=== PATIENT | female | born 1940 | race Caucasian/White ===

== ENCOUNTER 2018-06-13 16:55 | Inpatient (IN) | payer MEDICARE, MEDICAID ==
[~2018-06-13] VITALS: Ht 154.9 cm; Wt 136.8 kg
[2018-06-13] VITALS (127 sets, daily range): BP systolic 93–109; BP diastolic 29–55; PULSE 84–85; TEMP 97.4–97.6; O2SAT 96–100
[~2018-06-13 16:55] MED LIST: ASPIRIN 81M81 MG/TA2 PO; ATIVAN 0.50.5 MG/TAB PO; HCTZ 25MG TAB25 MG PO; MOBIC15 MG PO; PRINIVIL20 MG PO; SYNTHROID0.075 MG/T PO; TYLENOL 325MG325 MG PO
[2018-06-13 19:09] LABS: BASO % 0.3 % (0.0-2.0); EOS # 0.4 (0.0-0.7); EOS % 3.6 % (0-4.0); GRAN # 9.1 (1.4-6.5); GRAN % 84.3 % (42.2-75.2); LYMPH # 0.7 (1.2-3.4); LYMPH % 6.8 % (20.0-51.0); MEAN CELL VOLUME 91 fl (80.0-100.0); MEAN CORPUSCULAR HGB CONC 29 g/dl (33.0-37.0); MEAN PLATELET VOLUME 10.8 fl (7.4-10.4); MONO # 0.5 (0.1-0.6); MONO % 4.3 % (1.7-9.3); PLATELET COUNT 235 K/mm3 (130-400); RED BLOOD COUNT 2.71 M/mm3 (4.10-5.30); REDCELL DISTRIBUTION WIDTH-CV 19.7 % (11.5-14.5)
[2018-06-13 19:15] LABS: HEMATOCRIT 24.7 % (37.0-47.0); HEMOGLOBIN 7.2 g/dl (12.5-16.0); MEAN CORPUSCULAR HEMOGLOBIN 27 pg (27.0-31.0)
[2018-06-13 19:25] LABS: ALBUMIN 3.2 gm/dL (3.5-5.0); BILIRUBIN,TOTAL 0.4 mg/dL (0.0-1.0); CALCIUM 8.2 mg/dL (8.4-10.2); POTASSIUM 5.5 mmol/L (3.4-5.0); TOTAL PROTEIN 6.7 gm/dL (6.4-8.2)
[2018-06-13 19:27] LABS: CREATININE, serum 8.22 mg/dL (0.52-1.25)
[2018-06-13 20:01] LABS: COLLECTION METHOD CATHETER
[2018-06-13 20:11] LABS: PH 5 (5-8); URINE APPEARANCE Cloudy; URINE BACTERIA Rare /hpf; URINE BILIRUBIN Negative (NEGATIVE); URINE BLOOD 2+ (NEGATIVE); URINE COLOR Yellow; URINE GLUCOSE Negative (NEGATIVE); URINE KETONE Trace (NEGATIVE); URINE LEUKOCYTE ESTERASE 3+ (NEGATIVE); URINE NITRATE Negative (NEGATIVE); URINE PROTEIN(semi-quant) Negative (NEGATIVE); URINE RBC 20-50 /hpf; URINE UROBILINOGEN Negative (NEGATIVE)
[2018-06-13 20:17] LABS: URINE PROTEIN:CREAT RATIO 0.09 (0.00-0.14)
[2018-06-13 20:17] LABS: FRACTIONAL EXCRETION OF NA+ 0.1 %
[2018-06-13 20:19] LABS: CREATININE, serum 8.34 mg/dL (0.52-1.25)
[2018-06-14] VITALS (427 sets, daily range): BP systolic 93–134; BP diastolic 43–87; PULSE 64–98; TEMP 97.4–98.6; O2SAT 71–100
[2018-06-14 05:54] LABS: BASO % 0.3 % (0.0-2.0); EOS # 0.4 (0.0-0.7); EOS % 4.2 % (0-4.0); GRAN # 7.8 (1.4-6.5); GRAN % 81.7 % (42.2-75.2); LYMPH # 0.8 (1.2-3.4); LYMPH % 8.5 % (20.0-51.0); MEAN CELL VOLUME 90 fl (80.0-100.0); MEAN CORPUSCULAR HGB CONC 29 g/dl (33.0-37.0); MEAN PLATELET VOLUME 10.6 fl (7.4-10.4); MONO # 0.5 (0.1-0.6); MONO % 4.9 % (1.7-9.3); PLATELET COUNT 204 K/mm3 (130-400); REDCELL DISTRIBUTION WIDTH-CV 19.6 % (11.5-14.5)
[2018-06-14 06:10] LABS: HEMATOCRIT 24.3 % (37.0-47.0); HEMOGLOBIN 7.1 g/dl (12.5-16.0); MEAN CORPUSCULAR HEMOGLOBIN 26 pg (27.0-31.0)
[2018-06-14 07:40] LABS: ALBUMIN 3.1 gm/dL (3.5-5.0); POTASSIUM 5.5 mmol/L (3.4-5.0)
[2018-06-14 07:41] LABS: PHOSPHOROUS 9.8 mg/dL (2.5-4.5)
[2018-06-14 07:45] LABS: CREATININE, serum 8.43 mg/dL (0.52-1.25)
[2018-06-14] MEDS ORDERED: LASIX 40MG TABL40 MG PO (16:23)
[2018-06-14] MEDS ORDERED: FERROUS SU325 MG/TAB PO (16:23)
[2018-06-14] MEDS ORDERED: PULMICORT0.5 MG/2 M IH (16:23)
[2018-06-14] MEDS ORDERED: ELIQUIS 5MG PO (16:23)
[2018-06-14] MEDS ORDERED: ATROVENT I0.2 MG/1 M IH (16:24)
[2018-06-14] MEDS ORDERED: INVANZ INJ1 G/VIAL IV (16:24)
[2018-06-14] MEDS ORDERED: TYLENOL 325MG325 MG PO (16:25)
[2018-06-14] MEDS ORDERED: LEVOXYL0.125 MG PO (16:25)
[2018-06-14] MEDS ORDERED: REQUIP 0.5MG0.5 MG PO (16:26)
[2018-06-14] MEDS ORDERED: LOPRESSOR 550 MG/TAB PO (16:26)
[2018-06-14] MEDS ORDERED: PROTONIX 40MG T40 MG PO (16:26)
[2018-06-14] MEDS ORDERED: LASIX 20MG TABL20 MG PO (16:27)
[2018-06-14] MEDS ORDERED: VITAMIN C500 MG PO (16:27)
[2018-06-15] VITALS (7 sets, daily range): BP systolic 107–152; BP diastolic 39–94; PULSE 74–115; TEMP 97.5–98.6
[2018-06-15 09:38] LABS: BASO % 0.4 % (0.0-2.0); EOS # 0.2 (0.0-0.7); EOS % 2.3 % (0-4.0); GRAN # 8.6 (1.4-6.5); GRAN % 86.3 % (42.2-75.2); LYMPH # 0.6 (1.2-3.4); LYMPH % 6.4 % (20.0-51.0); MEAN CELL VOLUME 90 fl (80.0-100.0); MEAN CORPUSCULAR HGB CONC 30 g/dl (33.0-37.0); MEAN PLATELET VOLUME 10.4 fl (7.4-10.4); MONO # 0.4 (0.1-0.6); PLATELET COUNT 206 K/mm3 (130-400); RED BLOOD COUNT 2.78 M/mm3 (4.10-5.30); REDCELL DISTRIBUTION WIDTH-CV 19.1 % (11.5-14.5)
[2018-06-15 09:39] LABS: HEMATOCRIT 25.1 % (37.0-47.0); HEMOGLOBIN 7.4 g/dl (12.5-16.0); MEAN CORPUSCULAR HEMOGLOBIN 27 pg (27.0-31.0)
[2018-06-15 09:46] LABS: CALCIUM 7.5 mg/dL (8.4-10.2); POTASSIUM 5.2 mmol/L (3.4-5.0)
[2018-06-15 09:48] LABS: PHOSPHOROUS 10.3 mg/dL (2.5-4.5)
[2018-06-15 09:49] LABS: CREATININE, serum 9.15 mg/dL (0.52-1.25)
[2018-06-15 23:20] LABS: HEPATITIS B CORE AB,TOTAL Negative (()); HEPATITIS B SURFACE ANTIBODY <2.0 (()); HEPATITIS B SURFACE ANTIGEN Negative (()); HEPATITIS C VIRUS ANTIBODY Negative (())
[2018-06-16 06:01] VITALS: BP 155/85; PULSE 74; TEMP 98.6
[2018-06-16 08:59] VITALS: BP 113/53; PULSE 106; TEMP 98.7
[2018-06-16 10:18] LABS: BASO % 0.3 % (0.0-2.0); EOS # 0.2 (0.0-0.7); EOS % 1.6 % (0-4.0); GRAN # 9.9 (1.4-6.5); GRAN % 84.6 % (42.2-75.2); LYMPH # 0.7 (1.2-3.4); MEAN CELL VOLUME 91 fl (80.0-100.0); MEAN CORPUSCULAR HGB CONC 30 g/dl (33.0-37.0); MEAN PLATELET VOLUME 10.8 fl (7.4-10.4); MONO # 0.8 (0.1-0.6); MONO % 6.5 % (1.7-9.3); PLATELET COUNT 194 K/mm3 (130-400); RED BLOOD COUNT 2.97 M/mm3 (4.10-5.30); REDCELL DISTRIBUTION WIDTH-CV 18.8 % (11.5-14.5)
[2018-06-16 10:24] LABS: HEMATOCRIT 26.9 % (37.0-47.0); MEAN CORPUSCULAR HEMOGLOBIN 27 pg (27.0-31.0)
[2018-06-16 10:30] LABS: ALBUMIN 3.1 gm/dL (3.5-5.0); CALCIUM 7.9 mg/dL (8.4-10.2); PHOSPHOROUS 8.3 mg/dL (2.5-4.5); POTASSIUM 4.8 mmol/L (3.4-5.0)
[2018-06-16 10:45] LABS: CREATININE, serum 7.46 mg/dL (0.52-1.25)
[2018-06-16 16:00] VITALS: BP 113/51; PULSE 127; TEMP 98.3
[2018-06-16 19:17] VITALS: BP 109/34; PULSE 95; TEMP 98
[2018-06-17 00:14] VITALS: BP 110/50; PULSE 107; TEMP 98.7
[2018-06-17 04:22] VITALS: BP 117/56; PULSE 93; TEMP 98.8
[2018-06-17 07:48] VITALS: BP 134/49; PULSE 92; TEMP 98.3
[2018-06-17 07:58] LABS: MEAN CELL VOLUME 92 fl (80.0-100.0); MEAN CORPUSCULAR HGB CONC 29 g/dl (33.0-37.0); MEAN PLATELET VOLUME 10.7 fl (7.4-10.4); PLATELET COUNT 180 K/mm3 (130-400); RED BLOOD COUNT 2.77 M/mm3 (4.10-5.30); REDCELL DISTRIBUTION WIDTH-CV 18.9 % (11.5-14.5)
[2018-06-17 07:59] LABS: HEMATOCRIT 25.6 % (37.0-47.0); HEMOGLOBIN 7.5 g/dl (12.5-16.0); MEAN CORPUSCULAR HEMOGLOBIN 27 pg (27.0-31.0)
[2018-06-17 08:05] LABS: ALBUMIN 2.7 gm/dL (3.5-5.0); CALCIUM 8.3 mg/dL (8.4-10.2); PHOSPHOROUS 6.2 mg/dL (2.5-4.5); POTASSIUM 4.4 mmol/L (3.4-5.0)
[2018-06-17 08:11] LABS: CREATININE, serum 5.85 mg/dL (0.52-1.25)
[2018-06-17 09:57] LABS: ANISOCYTOSIS 2+; BAND 5 % (0-10); EOSINOPHIL 2 % (0-4); LYMPHOCYTE 4 % (20.0-51.0); NEUTROPHILS 85 % (42.0-75.2); OVALOCYTES 1+
[2018-06-17 12:20] VITALS: BP 102/90; PULSE 91; TEMP 98.3
[2018-06-17 15:59] VITALS: BP 97/34; PULSE 91; TEMP 98.1
[2018-06-17 20:09] VITALS: BP 108/34; PULSE 98; TEMP 98.7
[2018-06-18 01:10] VITALS: BP 125/44; PULSE 84; TEMP 97.9
[2018-06-18 04:05] VITALS: BP 122/33; PULSE 82; TEMP 98.2
[2018-06-18 07:31] LABS: MEAN CELL VOLUME 94 fl (80.0-100.0); MEAN CORPUSCULAR HGB CONC 30 g/dl (33.0-37.0); MEAN PLATELET VOLUME 10.6 fl (7.4-10.4); PLATELET COUNT 187 K/mm3 (130-400); RED BLOOD COUNT 2.76 M/mm3 (4.10-5.30)
[2018-06-18 07:36] LABS: ALBUMIN 2.6 gm/dL (3.5-5.0); CALCIUM 8.3 mg/dL (8.4-10.2); HEMATOCRIT 25.8 % (37.0-47.0); HEMOGLOBIN 7.6 g/dl (12.5-16.0); MEAN CORPUSCULAR HEMOGLOBIN 28 pg (27.0-31.0); PHOSPHOROUS 5.1 mg/dL (2.5-4.5); POTASSIUM 4.1 mmol/L (3.4-5.0)
[2018-06-18 07:39] LABS: CREATININE, serum 4.64 mg/dL (0.52-1.25)
[2018-06-18 08:13] LABS: BAND 3 % (0-10); BASOPHIL 1 % (0-2); EOSINOPHIL 4 % (0-4); LYMPHOCYTE 14 % (20.0-51.0); NEUTROPHILS 74 % (42.0-75.2); PLATELET ESTIMATE NORMAL (NORMAL)
[2018-06-18 08:14] LABS: HYPOCHROMIA 3+; POLYCHROMASIA 2+
[2018-06-18 08:15] LABS: ANISOCYTOSIS 2+
[2018-06-18 11:26] VITALS: BP 114/41; PULSE 97; TEMP 97.6
[2018-06-18 16:19] VITALS: BP 119/47; PULSE 88; TEMP 98.2
[2018-06-18 20:36] VITALS: BP 94/48; PULSE 98; TEMP 98.1
[2018-06-18 22:35] VITALS: BP 117/81; PULSE 87
[2018-06-19 00:51] VITALS: BP 117/38; PULSE 89; TEMP 98.2
[2018-06-19 04:24] VITALS: BP 121/42; PULSE 80; TEMP 98.2
[2018-06-19 07:32] LABS: IRON,SERUM 17 ug/dL (35-150)
[2018-06-19 07:36] LABS: ALBUMIN 2.6 gm/dL (3.5-5.0); CALCIUM 8.1 mg/dL (8.4-10.2); CREATININE, serum 3.34 mg/dL (0.52-1.25); POTASSIUM 3.9 mmol/L (3.4-5.0)
[2018-06-19 07:41] LABS: TOTAL IRON BINDING CAPACITY 255 ug/dL (265-497)
[2018-06-19 08:08] LABS: FERRITIN 108 ng/mL (11-264)
[2018-06-19 08:16] VITALS: BP 109/46; PULSE 88; TEMP 98.1
[2018-06-19 12:24] VITALS: BP 107/42; PULSE 84; TEMP 98.5
[2018-06-19] MEDS ORDERED: ELIQUIS 2.5 PO (13:17)
[2018-06-19] MEDS ORDERED: PHOSLO667 MG PO (13:18)
[2018-06-19] MEDS ORDERED: LOPRESSOR 225 MG/TAB PO (13:18)
[2018-06-19] MEDS ORDERED: LANOXIN 0.120.125 MG PO (13:18)
[2018-06-19 13:29] VITALS: BP 107/42; PULSE 84; TEMP 98.5
[2018-06-19 15:33] VITALS: BP 142/79; PULSE 64; TEMP 97.4
== END 2018-06-19 15:15 | DRG 674 ==
LOC: ICU 16:55 → MEDICAL 18:51 → ICU 18:51 → MEDICAL 06-14 15:41
PROVIDERS: Internal Medicine; Internal Medicine Nephrology; Radiology Diagnostic Radiology
PROC: 06H033Z Insertion of Infusion Device into Inferior Vena Cava, Percutaneous Approach (ICD-10-PCS; 2018-06-14)
PROC: 0JH60XZ Insertion of Tunneled Vascular Access Device into Chest Subcutaneous Tissue and Fascia, Open Approach (ICD-10-PCS; principal; 2018-06-14 13:00)
PROC: 5A1D70Z Performance of Urinary Filtration, Intermittent, Less than 6 Hours Per Day (ICD-10-PCS; 2018-06-15)
PROC: 5A1D70Z Performance of Urinary Filtration, Intermittent, Less than 6 Hours Per Day (ICD-10-PCS; 2018-06-16)
PROC: 5A1D70Z Performance of Urinary Filtration, Intermittent, Less than 6 Hours Per Day (ICD-10-PCS; 2018-06-17)
PROC: 5A1D70Z Performance of Urinary Filtration, Intermittent, Less than 6 Hours Per Day (ICD-10-PCS; 2018-06-18)
DX: N17.9 Acute kidney failure, unspecified (principal); Z68.44 Body mass index [BMI] 60.0-69.9, adult; Z66 Do not resuscitate; I12.9 Hypertensive chronic kidney disease with stage 1 through stage 4 chronic kidney disease, or unspecified chronic kidney disease; N18.4 Chronic kidney disease, stage 4 (severe); E66.01 Morbid (severe) obesity due to excess calories; E87.5 Hyperkalemia; Z85.3 Personal history of malignant neoplasm of breast; Z85.828 Personal history of other malignant neoplasm of skin; I48.91 Unspecified atrial fibrillation; Z79.01 Long term (current) use of anticoagulants; D63.1 Anemia in chronic kidney disease; J44.9 Chronic obstructive pulmonary disease, unspecified
CPT/HCPCS: C1751; J0690; J1644; J2250; J3010; P9016

== ENCOUNTER → 2018-07-12 | Outpatient (REF) ==
[~2018-07-12] MED LIST changes: +ATROVENT I0.2 MG/1 M IH; +ELIQUIS 2.5 PO; +ELIQUIS 5MG PO; +FERROUS SU325 MG/TAB PO; +INVANZ INJ1 G/VIAL IV; +LANOXIN 0.120.125 MG PO; +LASIX 20MG TABL20 MG PO; +LASIX 40MG TABL40 MG PO; +LASIX 80MG TABL80 MG PO; +LEVOXYL0.125 MG PO; +LOPRESSOR 225 MG/TAB PO; +LOPRESSOR 550 MG/TAB PO; +PHOSLO667 MG PO; +PROTONIX 40MG T40 MG PO; +PULMICORT0.5 MG/2 M IH; +REQUIP 0.5MG0.5 MG PO; +VITAMIN C500 MG PO; +VITAMIN D 50,1.25 MG PO
== END ==
LOC: ZLAB.STJ 13:50
DX: N39.0 Urinary tract infection, site not specified (principal)

== ENCOUNTER → 2018-08-09 | Outpatient (CLI) | payer MEDICARE, MEDICAID ==
[2018-08-09 18:00] LABS: ALBUMIN 2.5 gm/dL (3.5-5.0); BILIRUBIN,TOTAL 0.3 mg/dL (0.0-1.0); CALCIUM 8.7 mg/dL (8.4-10.2); POTASSIUM 4.5 mmol/L (3.4-5.0); TOTAL PROTEIN 5.5 gm/dL (6.4-8.2)
[2018-08-09 18:13] LABS: CREATININE, serum 3.94 mg/dL (0.52-1.25)
== END ==
LOC: ZCOL.LAB 17:27
PROVIDERS: Internal Medicine Medical Oncology
DX: D05.11 Intraductal carcinoma in situ of right breast (principal)

== ENCOUNTER 2018-08-17 08:08 | Day surgery (SDC) | payer MEDICARE, MEDICAID ==
[~2018-08-17] VITALS: Ht 154.9 cm; Wt 130.9 kg
[2018-08-17] MEDS ORDERED: ZOFRAN 4MG T4 MG/TAB PO (09:12)
[2018-08-17] MEDS ORDERED: VITAMIN C500 MG PO (09:13)
[2018-08-17] MEDS ORDERED: ANTIVERT 12.512.5 MG PO (09:14)
[2018-08-17] MEDS ORDERED: LASIX 80MG TABL80 MG PO (09:14)
[2018-08-17 09:16] LABS: CALCIUM 8.9 mg/dL (8.4-10.2); CREATININE, serum 2.5 mg/dL (0.52-1.25); POTASSIUM 3.9 mmol/L (3.4-5.0)
[2018-08-17] MEDS ORDERED: ELIQUIS 2.5 PO (09:16)
[2018-08-17] MEDS ORDERED: DILAUDID 2MG TAB2 MG PO (09:17)
[2018-08-17] MEDS ORDERED: PHOSLO667 MG PO (09:17)
[2018-08-17] MEDS ORDERED: OXYGEN (09:22)
[2018-08-17] MEDS ORDERED: PULMICORT90 MCG/Act IH (09:24)
[2018-08-17 09:45] VITALS: BP 113/39; PULSE 103; TEMP 97.9
[2018-08-17 12:30] VITALS: BP 93/35; PULSE 96
[2018-08-17 12:45] VITALS: BP 139/47; PULSE 101
[2018-08-17 13:00] VITALS: BP 115/50; PULSE 99
== END 2018-08-17 14:25 | disposition home or self-care (01) ==
LOC: SDCO 08:08
PROVIDERS: Surgery
DX: I13.2 Hypertensive heart and chronic kidney disease with heart failure and with stage 5 chronic kidney disease, or end stage renal disease (principal); N18.6 End stage renal disease; I50.9 Heart failure, unspecified; I48.2 Chronic atrial fibrillation; Z79.01 Long term (current) use of anticoagulants; Z79.899 Other long term (current) drug therapy; Z79.82 Long term (current) use of aspirin; E66.01 Morbid (severe) obesity due to excess calories; J96.10 Chronic respiratory failure, unspecified whether with hypoxia or hypercapnia; Z87.891 Personal history of nicotine dependence; J44.9 Chronic obstructive pulmonary disease, unspecified; Z68.42 Body mass index [BMI] 45.0-49.9, adult; G62.9 Polyneuropathy, unspecified; R20.2 Paresthesia of skin
CPT/HCPCS: J0690; J1644; J2704; J3010; J7030

== ENCOUNTER → 2018-08-31 | Outpatient (CLI) | payer MEDICARE, MEDICAID ==
[~2018-08-31] MED LIST changes: +ANTIVERT 12.512.5 MG PO; +DILAUDID 2MG TAB2 MG PO; +OXYGEN; +PULMICORT90 MCG/Act IH; +ZOFRAN 4MG T4 MG/TAB PO
== END ==
LOC: ZLAB.STJ 09:38
DX: A04.72 Enterocolitis due to Clostridium difficile, not specified as recurrent (principal)

== ENCOUNTER 2018-09-14 19:59 | Inpatient (IN) | payer MEDICARE, MEDICAID ==
[2018-09-14] VITALS (9 sets, daily range): O2SAT 97–100
[~2018-09-14] VITALS: Ht 154.9 cm; Wt 118.2 kg
[2018-09-14 20:34] LABS: BASO # 0.1 (0.0-0.2); BASO % 0.8 % (0.0-2.0); EOS # 0.2 (0.0-0.7); EOS % 1.7 % (0-4.0); GRAN # 10.3 (1.4-6.5); GRAN % 79.1 % (42.2-75.2); HEMOGLOBIN 10.1 g/dl (12.5-16.0); LYMPH # 1.4 (1.2-3.4); MEAN CELL VOLUME 95 fl (80.0-100.0); MEAN CORPUSCULAR HEMOGLOBIN 29 pg (27.0-31.0); MEAN CORPUSCULAR HGB CONC 31 g/dl (33.0-37.0); MEAN PLATELET VOLUME 9.6 fl (7.4-10.4); MONO # 0.9 (0.1-0.6); MONO % 6.6 % (1.7-9.3); PLATELET COUNT 282 K/mm3 (130-400); RED BLOOD COUNT 3.44 M/mm3 (4.10-5.30)
[2018-09-14 20:40] LABS: INR 1.6 (0.8-3.0); PROTHROMBIN TIME 18.2 SECONDS (9.7-12.8)
[2018-09-14 20:42] LABS: PARTIAL THROMBOPLASTIN TIME 30.9 SECONDS (26.0-37.0)
[2018-09-14 20:45] LABS: BILIRUBIN,TOTAL 0.5 mg/dL (0.0-1.0); C-REACTIVE PROTEIN 8.1 mg/dL (0.0-0.9); CREATININE, serum 2.68 mg/dL (0.52-1.25); HEMATOCRIT 32.5 % (37.0-47.0); POTASSIUM 4.2 mmol/L (3.4-5.0); TOTAL PROTEIN 4.9 gm/dL (6.4-8.2)
[2018-09-14 20:54] LABS: TROPONIN-I 0.024 ng/mL (0.000-0.034)
[2018-09-14] MEDS ORDERED: IMODIUM 2MG CAPS2 MG PO (22:53)
[2018-09-14] MEDS ORDERED: ANUSOL-HC SUPPO25 MG RC (22:54)
[2018-09-14] MEDS ORDERED: TUCKS50% TP (22:54)
[2018-09-14] MEDS ORDERED: QUESTRAN4 GM/9 GM PO (22:55)
[2018-09-14] MEDS ORDERED: NYAMYC100000 U/G TP (22:56)
[2018-09-15] VITALS (674 sets, daily range): BP systolic 93–116; BP diastolic 37–81; PULSE 12–123; TEMP 97.5–97.8; O2SAT 58–100
[2018-09-15] MEDS ORDERED: ZOFRAN 4MG T4 MG/TAB PO (00:24)
[2018-09-15] MEDS ORDERED: ANTIVERT 12.512.5 MG PO (00:25)
[2018-09-15] MEDS ORDERED: LASIX 80MG TABL80 MG PO (00:25)
[2018-09-15] MEDS ORDERED: ATROVENT I0.2 MG/1 M IH (00:26)
[2018-09-15] MEDS ORDERED: ELIQUIS 2.5 PO (00:27)
[2018-09-15] MEDS ORDERED: DILAUDID 2MG TAB2 MG PO (00:27)
[2018-09-15] MEDS ORDERED: PHOS LO PO (00:28)
[2018-09-15] MEDS ORDERED: PULMICORT0.5 MG/2 M IH (00:29)
[2018-09-15] MEDS ORDERED: ASPIRIN 81M81 MG/TA2 PO (00:29)
[2018-09-15] MEDS ORDERED: TYLENOL 325MG325 MG PO (00:37)
[2018-09-15] MEDS ORDERED: DRISDOL50000 IU PO (00:38)
[2018-09-15] MEDS ORDERED: LEVOXYL0.125 MG PO (00:39)
[2018-09-15] MEDS ORDERED: PROTONIX 40MG T40 MG PO (00:39)
[2018-09-15] MEDS ORDERED: REQUIP 0.5MG0.5 MG PO (00:48)
[2018-09-15] MEDS ORDERED: VTAMINC250TA PO (00:48)
[2018-09-15] MEDS ORDERED: IMODIUM 2MG CAPS2 MG PO (00:49)
[2018-09-15] MEDS ORDERED: ANUSOL-HC SUPPO25 MG RC (00:50)
[2018-09-15] MEDS ORDERED: TUCKS50% TP (00:51)
[2018-09-15] MEDS ORDERED: QUESTRAN4 GM/9 GM PO (00:52)
[2018-09-15 06:25] LABS: BASO # 0.1 (0.0-0.2); BASO % 0.6 % (0.0-2.0); EOS # 0.2 (0.0-0.7); EOS % 1.5 % (0-4.0); GRAN # 8.9 (1.4-6.5); GRAN % 77.3 % (42.2-75.2); HEMOGLOBIN 10.3 g/dl (12.5-16.0); LYMPH # 1.5 (1.2-3.4); LYMPH % 13.3 % (20.0-51.0); MEAN CELL VOLUME 94 fl (80.0-100.0); MEAN CORPUSCULAR HEMOGLOBIN 29 pg (27.0-31.0); MEAN CORPUSCULAR HGB CONC 31 g/dl (33.0-37.0); MEAN PLATELET VOLUME 9.1 fl (7.4-10.4); MONO # 0.7 (0.1-0.6); PLATELET COUNT 310 K/mm3 (130-400); RED BLOOD COUNT 3.53 M/mm3 (4.10-5.30)
[2018-09-15 06:35] LABS: CALCIUM 8.1 mg/dL (8.4-10.2); CREATININE, serum 3.08 mg/dL (0.52-1.25); POTASSIUM 4.2 mmol/L (3.4-5.0)
[2018-09-16] VITALS (600 sets, daily range): BP systolic 82–110; BP diastolic 36–66; PULSE 84–121; TEMP 97.4–98.5; O2SAT 46–100
[2018-09-16 07:13] LABS: MEAN CELL VOLUME 91 fl (80.0-100.0); MEAN CORPUSCULAR HGB CONC 32 g/dl (33.0-37.0); MEAN PLATELET VOLUME 9.2 fl (7.4-10.4); PLATELET COUNT 286 K/mm3 (130-400); RED BLOOD COUNT 3.09 M/mm3 (4.10-5.30); REDCELL DISTRIBUTION WIDTH-CV 19.8 % (11.5-14.5)
[2018-09-16 07:19] LABS: HEMATOCRIT 28.2 % (37.0-47.0); HEMOGLOBIN 8.9 g/dl (12.5-16.0); MEAN CORPUSCULAR HEMOGLOBIN 29 pg (27.0-31.0)
[2018-09-16 07:29] LABS: CALCIUM 7.7 mg/dL (8.4-10.2); CREATININE, serum 3.62 mg/dL (0.52-1.25); POTASSIUM 4.3 mmol/L (3.4-5.0)
[2018-09-16 07:57] LABS: BAND 7 % (0-10); EOSINOPHIL 4 % (0-4); HYPOCHROMIA 1+; LYMPHOCYTE 14 % (20.0-51.0); NEUTROPHILS 75 % (42.0-75.2); PLATELET ESTIMATE NORMAL (NORMAL)
[2018-09-16 07:58] LABS: ANISOCYTOSIS 1+
[2018-09-17] VITALS (299 sets, daily range): BP systolic 85–109; BP diastolic 40–85; PULSE 99–130; TEMP 97.5–97.9; O2SAT 61–100
[2018-09-18] VITALS (9 sets, daily range): BP systolic 81–157; BP diastolic 37–70; PULSE 97–150; TEMP 97.5–98.5
[2018-09-18 09:32] LABS: HEMATOCRIT 30.3 % (37.0-47.0); HEMOGLOBIN 9.6 g/dl (12.5-16.0); MEAN CELL VOLUME 91 fl (80.0-100.0); MEAN CORPUSCULAR HEMOGLOBIN 29 pg (27.0-31.0); MEAN CORPUSCULAR HGB CONC 32 g/dl (33.0-37.0); PLATELET COUNT 303 K/mm3 (130-400); RED BLOOD COUNT 3.32 M/mm3 (4.10-5.30)
[2018-09-18 09:59] LABS: CALCIUM 7.8 mg/dL (8.4-10.2); CREATININE, serum 2.14 mg/dL (0.52-1.25); PHOSPHOROUS 1.7 mg/dL (2.5-4.5); POTASSIUM 3.7 mmol/L (3.4-5.0)
[2018-09-18 10:47] LABS: BAND 2 % (0-10); EOSINOPHIL 4 % (0-4); LYMPHOCYTE 12 % (20.0-51.0); MYELOCYTE 1 % (0-0); NEUTROPHILS 78 % (42.0-75.2); PLATELET ESTIMATE NORMAL (NORMAL); TARGET CELLS 3+
[2018-09-18 10:48] LABS: HYPOCHROMIA 1+
[2018-09-18 16:58] LABS: MEAN CELL VOLUME 91 fl (80.0-100.0); MEAN CORPUSCULAR HGB CONC 32 g/dl (33.0-37.0); PLATELET COUNT 297 K/mm3 (130-400); RED BLOOD COUNT 3.19 M/mm3 (4.10-5.30)
[2018-09-18 17:01] LABS: HEMATOCRIT 28.9 % (37.0-47.0); HEMOGLOBIN 9.3 g/dl (12.5-16.0); MEAN CORPUSCULAR HEMOGLOBIN 29 pg (27.0-31.0)
[2018-09-18 18:31] LABS: BAND 18 % (0-10); LYMPHOCYTE 5 % (20.0-51.0); NEUTROPHILS 70 % (42.0-75.2)
[2018-09-18 18:33] LABS: PLATELET ESTIMATE NORMAL (NORMAL)
[2018-09-18 22:52] LABS: INR 1.5 (0.8-3.0); PROTHROMBIN TIME 17.1 SECONDS (9.7-12.8)
[2018-09-18 22:53] LABS: ARTERIAL BLD GAS O2 SATURATION 96.1 % (92-100); ARTERIAL BLD GAS TCO2 CT 19.8; ARTERIAL BLOOD GAS BASE EXCESS -4.7 (-2-2); ARTERIAL BLOOD GAS HCO3 18.9 meq/L (22-26); ARTERIAL BLOOD GAS PCO2 29.5 mmHg (35-45); ARTERIAL BLOOD GAS PO2 92.9 mmHg (80-100); ARTERIAL BLOOD GAS pH 7.42 (7.35-7.45)
[2018-09-19] VITALS: BP 107/64; PULSE 107; TEMP 97.4
[2018-09-19 04:00] VITALS: BP 102/57; PULSE 93
[2018-09-19 04:27] LABS: ARTERIAL BLD GAS O2 SATURATION 96.6 % (92-100); ARTERIAL BLD GAS TCO2 CT 22.7; ARTERIAL BLOOD GAS HCO3 21.6 meq/L (22-26); ARTERIAL BLOOD GAS PCO2 36.6 mmHg (35-45); ARTERIAL BLOOD GAS PO2 98.8 mmHg (80-100); ARTERIAL BLOOD GAS pH 7.39 (7.35-7.45)
[2018-09-19 05:31] LABS: ARTERIAL BLD GAS O2 SATURATION 96.8 % (92-100); ARTERIAL BLD GAS TCO2 CT 21.6; ARTERIAL BLOOD GAS BASE EXCESS -3.5 (-2-2); ARTERIAL BLOOD GAS HCO3 20.5 meq/L (22-26); ARTERIAL BLOOD GAS PCO2 33.3 mmHg (35-45); ARTERIAL BLOOD GAS PO2 101.3 mmHg (80-100); ARTERIAL BLOOD GAS pH 7.41 (7.35-7.45)
[2018-09-19 05:34] LABS: MEAN CELL VOLUME 90 fl (80.0-100.0); MEAN CORPUSCULAR HGB CONC 32 g/dl (33.0-37.0); MEAN PLATELET VOLUME 9.3 fl (7.4-10.4); PLATELET COUNT 351 K/mm3 (130-400); RED BLOOD COUNT 3.23 M/mm3 (4.10-5.30); REDCELL DISTRIBUTION WIDTH-CV 19.9 % (11.5-14.5)
[2018-09-19 05:44] LABS: BILIRUBIN,TOTAL 0.5 mg/dL (0.0-1.0); CALCIUM 7.3 mg/dL (8.4-10.2); CREATININE, serum 2.61 mg/dL (0.52-1.25); POTASSIUM 3.6 mmol/L (3.4-5.0); TOTAL PROTEIN 4.7 gm/dL (6.4-8.2)
[2018-09-19 06:01] LABS: INR 1.4 (0.8-3.0); PROTHROMBIN TIME 15.8 SECONDS (9.7-12.8)
[2018-09-19 06:03] LABS: HEMATOCRIT 28.9 % (37.0-47.0); HEMOGLOBIN 9.3 g/dl (12.5-16.0); MEAN CORPUSCULAR HEMOGLOBIN 29 pg (27.0-31.0)
[2018-09-19 06:14] LABS: TSH w REFLEX 1.53 uIU/mL (0.465-4.680)
[2018-09-19 07:13] LABS: BAND 10 % (0-10); LYMPHOCYTE 2 % (20.0-51.0); MYELOCYTE 3 % (0-0); NEUTROPHILS 84 % (42.0-75.2); PLATELET ESTIMATE NORMAL (NORMAL)
[2018-09-19 07:14] LABS: TARGET CELLS 1+
[2018-09-19 08:00] VITALS: BP 107/64; PULSE 93; TEMP 97.8
[2018-09-19 12:00] VITALS: BP 94/68; PULSE 88; TEMP 97.6
[2018-09-19 14:54] LABS: ALBUMIN 1.9 gm/dL (3.5-5.0); BILIRUBIN,TOTAL 0.5 mg/dL (0.0-1.0); CALCIUM 7.3 mg/dL (8.4-10.2); CREATININE, serum 2.88 mg/dL (0.52-1.25); MAGNESIUM 1.6 mg/dL (1.6-2.3); PHOSPHOROUS 2.3 mg/dL (2.5-4.5); POTASSIUM 3.6 mmol/L (3.4-5.0); TOTAL PROTEIN 4.9 gm/dL (6.4-8.2)
[2018-09-19 15:01] LABS: PRE ALBUMIN 7.8 mg/dL (17.6-36.0)
[2018-09-19 16:00] VITALS: BP 120/50; PULSE 92; TEMP 97.9
[2018-09-19 20:00] VITALS: BP 95/37; TEMP 97.8
[2018-09-20] VITALS (488 sets, daily range): BP systolic 89–121; BP diastolic 42–81; PULSE 70–89; TEMP 97.5–98; O2SAT 67–100
[2018-09-20 05:24] LABS: HEMATOCRIT 25.7 % (37.0-47.0); HEMOGLOBIN 8.1 g/dl (12.5-16.0); MEAN CELL VOLUME 92 fl (80.0-100.0); MEAN CORPUSCULAR HEMOGLOBIN 29 pg (27.0-31.0); MEAN CORPUSCULAR HGB CONC 32 g/dl (33.0-37.0); PLATELET COUNT 321 K/mm3 (130-400); RED BLOOD COUNT 2.79 M/mm3 (4.10-5.30); REDCELL DISTRIBUTION WIDTH-CV 19.9 % (11.5-14.5)
[2018-09-20 05:30] LABS: INR 1.5 (0.8-3.0); PROTHROMBIN TIME 17.1 SECONDS (9.7-12.8)
[2018-09-20 05:31] LABS: ARTERIAL BLD GAS O2 SATURATION 98.1 % (92-100); ARTERIAL BLD GAS TCO2 CT 21.1; ARTERIAL BLOOD GAS BASE EXCESS -3.9 (-2-2); ARTERIAL BLOOD GAS HCO3 20.1 meq/L (22-26); ARTERIAL BLOOD GAS PCO2 32.4 mmHg (35-45); ARTERIAL BLOOD GAS pH 7.41 (7.35-7.45)
[2018-09-20 05:32] LABS: ARTERIAL BLOOD GAS PO2 137.3 mmHg (80-100)
[2018-09-20 05:34] LABS: ALBUMIN 1.8 gm/dL (3.5-5.0); BILIRUBIN,TOTAL 0.4 mg/dL (0.0-1.0); CALCIUM 7.4 mg/dL (8.4-10.2); CREATININE, serum 3.14 mg/dL (0.52-1.25); MAGNESIUM 1.7 mg/dL (1.6-2.3); PHOSPHOROUS 1.7 mg/dL (2.5-4.5); POTASSIUM 3.6 mmol/L (3.4-5.0); TOTAL PROTEIN 4.4 gm/dL (6.4-8.2)
[2018-09-20 06:16] LABS: LYMPHOCYTE 12 % (20.0-51.0); NEUTROPHILS 87 % (42.0-75.2); NUCLEATED RED BLOOD CELL 1 (0-6); PLATELET ESTIMATE NORMAL (NORMAL); TARGET CELLS 3+
[2018-09-20 06:17] LABS: ANISOCYTOSIS 2+
[2018-09-21] VITALS (49 sets, daily range): BP systolic 99–141; BP diastolic 39–81; PULSE 70–87; TEMP 97.5–98.7; O2SAT 97–99
[2018-09-21 05:56] LABS: MEAN CELL VOLUME 94 fl (80.0-100.0); MEAN CORPUSCULAR HGB CONC 31 g/dl (33.0-37.0); MEAN PLATELET VOLUME 9.2 fl (7.4-10.4); PLATELET COUNT 369 K/mm3 (130-400); RED BLOOD COUNT 3.01 M/mm3 (4.10-5.30); REDCELL DISTRIBUTION WIDTH-CV 20.1 % (11.5-14.5)
[2018-09-21 06:01] LABS: HEMATOCRIT 28.2 % (37.0-47.0); HEMOGLOBIN 8.8 g/dl (12.5-16.0); MEAN CORPUSCULAR HEMOGLOBIN 29 pg (27.0-31.0)
[2018-09-21 06:12] LABS: INR 1.2 (0.8-3.0); PROTHROMBIN TIME 13.3 SECONDS (9.7-12.8)
[2018-09-21 06:41] LABS: CALCIUM 7.9 mg/dL (8.4-10.2); CREATININE, serum 1.87 mg/dL (0.52-1.25); MAGNESIUM 1.8 mg/dL (1.6-2.3); PHOSPHOROUS 1.3 mg/dL (2.5-4.5); POTASSIUM 3.5 mmol/L (3.4-5.0)
[2018-09-21 07:25] LABS: BAND 2 % (0-10); BASOPHIL 1 % (0-2); LYMPHOCYTE 11 % (20.0-51.0); METAMYELOCYTE 1 % (0-0); MYELOCYTE 1 % (0-0); NUCLEATED RED BLOOD CELL 1 (0-6)
[2018-09-21 07:28] LABS: NEUTROPHILS 84 % (42.0-75.2)
[2018-09-21 07:29] LABS: PLATELET ESTIMATE NORMAL (NORMAL); TARGET CELLS 2+
[2018-09-21 09:25] LABS: ALBUMIN 1.9 gm/dL (3.5-5.0); BILIRUBIN,TOTAL 0.4 mg/dL (0.0-1.0)
[2018-09-21 09:26] LABS: TOTAL PROTEIN 4.8 gm/dL (6.4-8.2)
[2018-09-21] MEDS ORDERED: ANTIVERT 12.512.5 MG PO (14:00)
[2018-09-21] MEDS ORDERED: TUCKS50% TP (14:05)
[2018-09-21] MEDS ORDERED: PROTONIX 40MG T40 MG PO (14:06)
[2018-09-21] MEDS ORDERED: QUESTRAN4 GM/9 GM PO (14:06)
[2018-09-21] MEDS ORDERED: ERGOCALCIFER50000 IU PO (14:07)
[2018-09-21] MEDS ORDERED: ELIQUIS 2.5 PO (14:07)
[2018-09-21] MEDS ORDERED: PHOS LO PO (14:08)
[2018-09-21] MEDS ORDERED: LASIX 80MG TABL80 MG PO (14:09)
[2018-09-22 01:05] VITALS: BP 144/57; PULSE 80; TEMP 98.2
[2018-09-22 03:31] VITALS: BP 133/59; PULSE 79; TEMP 98.3
[2018-09-22 06:02] LABS: HEMATOCRIT 23.6 % (37.0-47.0); HEMOGLOBIN 7.4 g/dl (12.5-16.0); MEAN CELL VOLUME 101 fl (80.0-100.0); MEAN CORPUSCULAR HEMOGLOBIN 32 pg (27.0-31.0); MEAN CORPUSCULAR HGB CONC 31 g/dl (33.0-37.0); MEAN PLATELET VOLUME 9.8 fl (7.4-10.4); PLATELET COUNT 240 K/mm3 (130-400); RED BLOOD COUNT 2.33 M/mm3 (4.10-5.30); REDCELL DISTRIBUTION WIDTH-CV 20.9 % (11.5-14.5)
[2018-09-22 07:51] LABS: ANISOCYTOSIS 1+; BAND 4 % (0-10); HYPOCHROMIA 3+; LYMPHOCYTE 8 % (20.0-51.0); METAMYELOCYTE 1 % (0-0); NEUTROPHILS 87 % (42.0-75.2); PLATELET ESTIMATE NORMAL (NORMAL)
[2018-09-22 07:52] LABS: TARGET CELLS 1+; TEAR DROP CELLS 1+
[2018-09-22 07:59] VITALS: BP 121/52; PULSE 94; TEMP 97.7
[2018-09-22 11:38] VITALS: BP 128/55; PULSE 83; TEMP 97.6
[2018-09-22 11:42] LABS: CALCIUM 7.6 mg/dL (8.4-10.2); CREATININE, serum 2.61 mg/dL (0.52-1.25); MAGNESIUM 1.8 mg/dL (1.6-2.3); POTASSIUM 3.4 mmol/L (3.4-5.0)
[2018-09-22 17:40] VITALS: BP 111/44; PULSE 91; TEMP 98.2
[2018-09-22 20:03] VITALS: BP 143/73; PULSE 88; TEMP 98.4
[2018-09-23 04:09] VITALS: BP 139/63; PULSE 86; TEMP 97.6
[2018-09-23 06:08] LABS: BASO % 0.1 % (0.0-2.0); GRAN # 10.5 (1.4-6.5); GRAN % 85.8 % (42.2-75.2); LYMPH # 0.9 (1.2-3.4); MEAN CORPUSCULAR HGB CONC 32 g/dl (33.0-37.0); MEAN PLATELET VOLUME 9.5 fl (7.4-10.4); MONO # 0.6 (0.1-0.6); MONO % 4.5 % (1.7-9.3); PLATELET COUNT 209 K/mm3 (130-400); RED BLOOD COUNT 2.55 M/mm3 (4.10-5.30); REDCELL DISTRIBUTION WIDTH-CV 19.9 % (11.5-14.5)
[2018-09-23 06:23] LABS: HEMATOCRIT 23.8 % (37.0-47.0); HEMOGLOBIN 7.5 g/dl (12.5-16.0); MEAN CELL VOLUME 93 fl (80.0-100.0); MEAN CORPUSCULAR HEMOGLOBIN 29 pg (27.0-31.0)
[2018-09-23 09:49] VITALS: BP 106/50; PULSE 91; TEMP 97.8
[2018-09-23 12:05] VITALS: BP 116/50; PULSE 89; TEMP 97.6
[2018-09-23 13:50] LABS: ALBUMIN 1.6 gm/dL (3.5-5.0); BILIRUBIN,TOTAL 0.2 mg/dL (0.0-1.0); CALCIUM 7.5 mg/dL (8.4-10.2); CREATININE, serum 1.65 mg/dL (0.52-1.25); PHOSPHOROUS 3.1 mg/dL (2.5-4.5); POTASSIUM 3.8 mmol/L (3.4-5.0); TOTAL PROTEIN 4.1 gm/dL (6.4-8.2)
[2018-09-23 15:40] VITALS: BP 107/42; PULSE 93; TEMP 98.5
[2018-09-23 20:00] VITALS: BP 115/45; PULSE 99; TEMP 97.8
[2018-09-24] VITALS: BP 114/54; PULSE 78; TEMP 97.7
[2018-09-24 04:00] VITALS: BP 118/63; PULSE 87; TEMP 97.7
[2018-09-24 05:44] LABS: MEAN CELL VOLUME 94 fl (80.0-100.0); MEAN CORPUSCULAR HGB CONC 32 g/dl (33.0-37.0); MEAN PLATELET VOLUME 9.8 fl (7.4-10.4); PLATELET COUNT 196 K/mm3 (130-400); RED BLOOD COUNT 2.51 M/mm3 (4.10-5.30)
[2018-09-24 05:45] LABS: HEMATOCRIT 23.6 % (37.0-47.0); HEMOGLOBIN 7.6 g/dl (12.5-16.0); MEAN CORPUSCULAR HEMOGLOBIN 30 pg (27.0-31.0)
[2018-09-24 06:16] LABS: BAND 2 % (0-10); LYMPHOCYTE 8 % (20.0-51.0); METAMYELOCYTE 1 % (0-0); NEUTROPHILS 85 % (42.0-75.2); NUCLEATED RED BLOOD CELL 1 (0-6); PLATELET ESTIMATE NORMAL (NORMAL)
[2018-09-24 06:17] LABS: ANISOCYTOSIS 2+
[2018-09-24 07:23] LABS: CALCIUM 7.1 mg/dL (8.4-10.2); CREATININE, serum 2.26 mg/dL (0.52-1.25); MAGNESIUM 1.7 mg/dL (1.6-2.3); POTASSIUM 3.6 mmol/L (3.4-5.0)
[2018-09-24 08:39] VITALS: BP 121/49; PULSE 82; TEMP 97.7
[2018-09-24 11:14] VITALS: BP 121/49; PULSE 82; TEMP 97.7
[2018-09-24 11:55] VITALS: BP 106/46; PULSE 93; TEMP 98
== END 2018-09-24 12:50 | DRG 871 ==
LOC: COL.ER 19:59 → ICU 21:51 → SURG 09-15 00:23 → ICU 09-15 00:23 → SURG 09-21 12:03
PROVIDERS: Hospitalist; Internal Medicine; Internal Medicine Gastroenterology; Internal Medicine Nephrology; Internal Medicine Pulmonary Disease; Physician Assistant; Surgery
PROC: 5A1D70Z Performance of Urinary Filtration, Intermittent, Less than 6 Hours Per Day (ICD-10-PCS; 2018-09-16)
PROC: 5A1D70Z Performance of Urinary Filtration, Intermittent, Less than 6 Hours Per Day (ICD-10-PCS; 2018-09-17)
PROC: 5A1D70Z Performance of Urinary Filtration, Intermittent, Less than 6 Hours Per Day (ICD-10-PCS; 2018-09-18)
PROC: 0DBP8ZX Excision of Rectum, Via Natural or Artificial Opening Endoscopic, Diagnostic (ICD-10-PCS; principal; 2018-09-18 16:15)
PROC: 0DJ08ZZ Inspection of Upper Intestinal Tract, Via Natural or Artificial Opening Endoscopic (ICD-10-PCS; 2018-09-18 16:15)
PROC: 5A1D70Z Performance of Urinary Filtration, Intermittent, Less than 6 Hours Per Day (ICD-10-PCS; 2018-09-20)
PROC: 5A1D70Z Performance of Urinary Filtration, Intermittent, Less than 6 Hours Per Day (ICD-10-PCS; 2018-09-22)
DX: A41.9 Sepsis, unspecified organism (principal); K55.031 Focal (segmental) acute (reversible) ischemia of large intestine; N18.6 End stage renal disease; R65.21 Severe sepsis with septic shock; K55.041 Focal (segmental) acute infarction of large intestine; Z66 Do not resuscitate; Z68.42 Body mass index [BMI] 45.0-49.9, adult; I13.2 Hypertensive heart and chronic kidney disease with heart failure and with stage 5 chronic kidney disease, or end stage renal disease; I50.32 Chronic diastolic (congestive) heart failure; E87.1 Hypo-osmolality and hyponatremia; E46 Unspecified protein-calorie malnutrition; J90 Pleural effusion, not elsewhere classified; K21.0 Gastro-esophageal reflux disease with esophagitis; I48.2 Chronic atrial fibrillation; Z85.3 Personal history of malignant neoplasm of breast; E66.01 Morbid (severe) obesity due to excess calories; Z87.891 Personal history of nicotine dependence; D63.1 Anemia in chronic kidney disease; Z79.01 Long term (current) use of anticoagulants; Z99.2 Dependence on renal dialysis; L89.159 Pressure ulcer of sacral region, unspecified stage
CPT/HCPCS: A4216; A4217; A9284; C1751; G0378; J0282; J0610; J0834; J0882; J1160; J1170; J1720; J1815; J2185; J2370; J2704; J2916; J3010; J3370; J3411; J3475; J7030; J7040; J7050; J7060; J7512

== ENCOUNTER 2018-10-23 18:19 | Inpatient (IN) | payer MEDICARE, MEDICAID ==
[~2018-10-23] VITALS: Ht 154.9 cm; Wt 109.9 kg
[~2018-10-23 18:19] MED LIST changes: +ANUSOL-HC SUPPO25 MG RC; +DRISDOL50000 IU PO; +ERGOCALCIFER50000 IU PO; +IMODIUM 2MG CAPS2 MG PO; +NYAMYC100000 U/G TP; +PHOS LO PO; +QUESTRAN4 GM/9 GM PO; +TUCKS50% TP; +VTAMINC250TA PO
[2018-10-23 18:42] LABS: BASO # 0.1 (0.0-0.2); BASO % 0.5 % (0.0-2.0); EOS # 0.1 (0.0-0.7); EOS % 0.6 % (0-4.0); GRAN # 12.7 (1.4-6.5); GRAN % 82.9 % (42.2-75.2); HEMATOCRIT 28.1 % (37.0-47.0); HEMOGLOBIN 8.6 g/dl (12.5-16.0); LYMPH # 1.4 (1.2-3.4); LYMPH % 9.1 % (20.0-51.0); MEAN CELL VOLUME 99 fl (80.0-100.0); MEAN CORPUSCULAR HEMOGLOBIN 30 pg (27.0-31.0); MEAN CORPUSCULAR HGB CONC 31 g/dl (33.0-37.0); MEAN PLATELET VOLUME 9.4 fl (7.4-10.4); MONO # 0.7 (0.1-0.6); MONO % 4.6 % (1.7-9.3); PLATELET COUNT 274 K/mm3 (130-400); RED BLOOD COUNT 2.84 M/mm3 (4.10-5.30); REDCELL DISTRIBUTION WIDTH-CV 16.4 % (11.5-14.5)
[2018-10-23 18:50] LABS: ALBUMIN 2.6 gm/dL (3.5-5.0); BILIRUBIN,TOTAL 0.4 mg/dL (0.0-1.0); CALCIUM 8.7 mg/dL (8.4-10.2); CREATININE, serum 1.36 mg/dL (0.52-1.25); POTASSIUM 3.7 mmol/L (3.4-5.0); TOTAL PROTEIN 5.7 gm/dL (6.4-8.2)
[2018-10-23 19:07] LABS: PROLACTIN 47.2 ng/mL (3.0-18.6)
[2018-10-23 19:19] LABS: MAGNESIUM 1.8 mg/dL (1.6-2.3); PHOSPHOROUS 1.6 mg/dL (2.5-4.5)
[2018-10-23] MEDS ORDERED: BUSPAR5 MG PO (20:25)
[2018-10-23] MEDS ORDERED: ARANESP0.06 MG/ML SQ (20:28)
[2018-10-23] MEDS ORDERED: LEXAPRO 10MG10 MG PO (20:29)
[2018-10-23] MEDS ORDERED: MARINOL 2.5MG2.5 MG PO (20:29)
[2018-10-23] MEDS ORDERED: FERRO-TIME325 MG PO (20:31)
[2018-10-23 22:36] VITALS: PULSE 99; TEMP 97.9
[2018-10-23 22:50] VITALS: BP 78/28
[2018-10-23 22:55] VITALS: BP 75/35
[2018-10-23 23:00] VITALS: BP 72/38
[2018-10-24] VITALS (13 sets, daily range): BP systolic 72–106; BP diastolic 22–53; PULSE 95–122; TEMP 97.6–99.3
[2018-10-24] MEDS ORDERED: GLUTOSE 1540% PO (01:09)
[2018-10-24] MEDS ORDERED: GLUCAGEN HYPOKIT1 MG IM (02:05)
[2018-10-24] MEDS ORDERED: BIOTENE DRY M1000 ML PO (02:08)
[2018-10-24] MEDS ORDERED: DICLOZOR1 EACH TOP (02:09)
[2018-10-24] MEDS ORDERED: NEPHRO-VITE PO (02:13)
[2018-10-24] MEDS ORDERED: IPRATROPIUM BROM3 M1 IH (02:15)
[2018-10-24] MEDS ORDERED: BACTROBAN NASA0.9 GM NAS (02:16)
[2018-10-24] MEDS ORDERED: NYSTATIN POWDER15 GM TOP (02:17)
[2018-10-24 06:16] LABS: MEAN CELL VOLUME 100 fl (80.0-100.0); MEAN CORPUSCULAR HGB CONC 30 g/dl (33.0-37.0); MEAN PLATELET VOLUME 9.8 fl (7.4-10.4); PLATELET COUNT 252 K/mm3 (130-400); RED BLOOD COUNT 2.44 M/mm3 (4.10-5.30); REDCELL DISTRIBUTION WIDTH-CV 16.7 % (11.5-14.5)
[2018-10-24 06:17] LABS: HEMATOCRIT 24.4 % (37.0-47.0); HEMOGLOBIN 7.4 g/dl (12.5-16.0); MEAN CORPUSCULAR HEMOGLOBIN 30 pg (27.0-31.0)
[2018-10-24 06:23] LABS: CALCIUM 8.3 mg/dL (8.4-10.2); CREATININE, serum 1.83 mg/dL (0.52-1.25); POTASSIUM 3.9 mmol/L (3.4-5.0)
[2018-10-24 07:01] LABS: BAND 8 % (0-10); EOSINOPHIL 1 % (0-4); LYMPHOCYTE 7 % (20.0-51.0); METAMYELOCYTE 2 % (0-0); NEUTROPHILS 81 % (42.0-75.2); PLATELET ESTIMATE NORMAL (NORMAL)
[2018-10-25] VITALS (13 sets, daily range): BP systolic 76–107; BP diastolic 29–59; PULSE 92–109; TEMP 97.4–98.6
[2018-10-25 09:06] LABS: HEMATOCRIT 25.3 % (37.0-47.0); HEMOGLOBIN 7.8 g/dl (12.5-16.0); MEAN CELL VOLUME 100 fl (80.0-100.0); MEAN CORPUSCULAR HEMOGLOBIN 31 pg (27.0-31.0); MEAN CORPUSCULAR HGB CONC 31 g/dl (33.0-37.0); MEAN PLATELET VOLUME 9.6 fl (7.4-10.4); PLATELET COUNT 253 K/mm3 (130-400); RED BLOOD COUNT 2.53 M/mm3 (4.10-5.30); REDCELL DISTRIBUTION WIDTH-CV 17.4 % (11.5-14.5)
[2018-10-25 09:14] LABS: CALCIUM 8.2 mg/dL (8.4-10.2); CREATININE, serum 1.76 mg/dL (0.52-1.25); POTASSIUM 3.9 mmol/L (3.4-5.0)
[2018-10-25 09:55] LABS: BAND 4 % (0-10); LYMPHOCYTE 5 % (20.0-51.0); METAMYELOCYTE 2 % (0-0); NEUTROPHILS 87 % (42.0-75.2); PLATELET ESTIMATE NORMAL (NORMAL)
[2018-10-26] VITALS (7 sets, daily range): BP systolic 94–125; BP diastolic 30–53; PULSE 94–109; TEMP 97.7–98.1
[2018-10-26 07:12] LABS: CALCIUM 8.4 mg/dL (8.4-10.2); CREATININE, serum 1.97 mg/dL (0.52-1.25); MEAN CELL VOLUME 100 fl (80.0-100.0); MEAN CORPUSCULAR HGB CONC 30 g/dl (33.0-37.0); MEAN PLATELET VOLUME 9.6 fl (7.4-10.4); PLATELET COUNT 235 K/mm3 (130-400); POTASSIUM 4.2 mmol/L (3.4-5.0); RED BLOOD COUNT 2.93 M/mm3 (4.10-5.30); REDCELL DISTRIBUTION WIDTH-CV 16.9 % (11.5-14.5)
[2018-10-26 07:13] LABS: HEMATOCRIT 29.2 % (37.0-47.0); HEMOGLOBIN 8.8 g/dl (12.5-16.0); MEAN CORPUSCULAR HEMOGLOBIN 30 pg (27.0-31.0)
[2018-10-26 07:39] LABS: ANISOCYTOSIS 1+; BAND 6 % (0-10); EOSINOPHIL 1 % (0-4); LYMPHOCYTE 13 % (20.0-51.0); METAMYELOCYTE 2 % (0-0); NEUTROPHILS 71 % (42.0-75.2); PLATELET ESTIMATE NORMAL (NORMAL)
[2018-10-27 04:15] VITALS: BP 111/50; PULSE 106; TEMP 97.7
[2018-10-27 07:27] VITALS: BP 94/52; PULSE 112; TEMP 98.1
[2018-10-27 09:10] LABS: MEAN CELL VOLUME 99 fl (80.0-100.0); MEAN CORPUSCULAR HGB CONC 31 g/dl (33.0-37.0); MEAN PLATELET VOLUME 9.8 fl (7.4-10.4); PLATELET COUNT 251 K/mm3 (130-400); RED BLOOD COUNT 2.96 M/mm3 (4.10-5.30); REDCELL DISTRIBUTION WIDTH-CV 17.2 % (11.5-14.5)
[2018-10-27 09:12] LABS: HEMATOCRIT 29.4 % (37.0-47.0); MEAN CORPUSCULAR HEMOGLOBIN 30 pg (27.0-31.0)
[2018-10-27 09:18] LABS: CALCIUM 8.6 mg/dL (8.4-10.2); CREATININE, serum 2.97 mg/dL (0.52-1.25); POTASSIUM 4.3 mmol/L (3.4-5.0)
[2018-10-27 09:23] LABS: ANISOCYTOSIS 1+; BAND 7 % (0-10); EOSINOPHIL 1 % (0-4); LYMPHOCYTE 8 % (20.0-51.0); NEUTROPHILS 79 % (42.0-75.2); PLATELET ESTIMATE NORMAL (NORMAL)
[2018-10-27 09:24] LABS: HYPOCHROMIA 3+
[2018-10-27 09:25] LABS: STOMATOCYTE 1+
[2018-10-27 15:17] VITALS: BP 93/42; PULSE 102; TEMP 98.2
[2018-10-27 17:40] VITALS: BP 99/24; PULSE 106
[2018-10-27 17:42] VITALS: BP 100/42
[2018-10-27 20:15] VITALS: BP 108/39; PULSE 102; TEMP 98.4
[2018-10-28] VITALS (7 sets, daily range): BP systolic 108–131; BP diastolic 42–56; PULSE 87–111; TEMP 97.7–98.9
[2018-10-28 07:24] LABS: MEAN CELL VOLUME 98 fl (80.0-100.0); MEAN CORPUSCULAR HGB CONC 31 g/dl (33.0-37.0); PLATELET COUNT 230 K/mm3 (130-400); RED BLOOD COUNT 3.04 M/mm3 (4.10-5.30)
[2018-10-28 07:25] LABS: HEMATOCRIT 29.9 % (37.0-47.0); HEMOGLOBIN 9.2 g/dl (12.5-16.0); MEAN CORPUSCULAR HEMOGLOBIN 30 pg (27.0-31.0)
[2018-10-28 07:36] LABS: CALCIUM 8.5 mg/dL (8.4-10.2); CREATININE, serum 2.09 mg/dL (0.52-1.25)
[2018-10-28 08:08] LABS: BAND 4 % (0-10); EOSINOPHIL 1 % (0-4); LYMPHOCYTE 12 % (20.0-51.0); METAMYELOCYTE 1 % (0-0); NEUTROPHILS 78 % (42.0-75.2); PLATELET ESTIMATE NORMAL (NORMAL)
[2018-10-28 08:09] LABS: HYPOCHROMIA 3+
[2018-10-28 08:15] LABS: ANISOCYTOSIS 1+; STOMATOCYTE 1+
[2018-10-29] VITALS (11 sets, daily range): BP systolic 109–148; BP diastolic 40–76; PULSE 102–121; TEMP 97.8–98
[2018-10-30 04:00] VITALS: BP 140/51; PULSE 104; TEMP 98
[2018-10-30 07:29] VITALS: BP 140/85; BP 149/56; PULSE 106; PULSE 61; TEMP 97.5; TEMP 98.1
[2018-10-30 08:20] LABS: BASO # 0.1 (0.0-0.2); BASO % 0.7 % (0.0-2.0); EOS # 0.1 (0.0-0.7); EOS % 0.5 % (0-4.0); GRAN # 9.7 (1.4-6.5); GRAN % 83.7 % (42.2-75.2); LYMPH # 1.2 (1.2-3.4); LYMPH % 10.7 % (20.0-51.0); MEAN CELL VOLUME 98 fl (80.0-100.0); MEAN CORPUSCULAR HGB CONC 31 g/dl (33.0-37.0); MEAN PLATELET VOLUME 9.6 fl (7.4-10.4); MONO # 0.4 (0.1-0.6); MONO % 3.4 % (1.7-9.3); PLATELET COUNT 240 K/mm3 (130-400); RED BLOOD COUNT 2.92 M/mm3 (4.10-5.30); REDCELL DISTRIBUTION WIDTH-CV 16.9 % (11.5-14.5)
[2018-10-30 08:21] LABS: HEMATOCRIT 28.5 % (37.0-47.0); HEMOGLOBIN 8.9 g/dl (12.5-16.0); MEAN CORPUSCULAR HEMOGLOBIN 30 pg (27.0-31.0)
[2018-10-30 08:35] LABS: ALBUMIN 2.1 gm/dL (3.5-5.0); CALCIUM 8.3 mg/dL (8.4-10.2); CREATININE, serum 2.97 mg/dL (0.52-1.25); PHOSPHOROUS 2.7 mg/dL (2.5-4.5); POTASSIUM 3.7 mmol/L (3.4-5.0)
[2018-10-30 11:36] VITALS: BP 120/58; PULSE 99; TEMP 98.2
[2018-10-30 15:29] VITALS: BP 103/48; PULSE 106; TEMP 98.7
[2018-10-30 20:15] VITALS: BP 90/40; PULSE 106; TEMP 98
[2018-10-31 00:28] VITALS: BP 109/37; PULSE 109; TEMP 97.8
[2018-10-31 04:37] VITALS: BP 128/47; PULSE 89; TEMP 98
[2018-10-31 06:46] LABS: BASO # 0.1 (0.0-0.2); BASO % 0.6 % (0.0-2.0); EOS # 0.1 (0.0-0.7); EOS % 0.9 % (0-4.0); GRAN # 9.7 (1.4-6.5); GRAN % 76.6 % (42.2-75.2); LYMPH # 1.7 (1.2-3.4); LYMPH % 13.5 % (20.0-51.0); MEAN CELL VOLUME 97 fl (80.0-100.0); MEAN CORPUSCULAR HGB CONC 31 g/dl (33.0-37.0); MEAN PLATELET VOLUME 9.8 fl (7.4-10.4); MONO # 0.9 (0.1-0.6); MONO % 7.4 % (1.7-9.3); PLATELET COUNT 245 K/mm3 (130-400); REDCELL DISTRIBUTION WIDTH-CV 16.9 % (11.5-14.5)
[2018-10-31 06:47] LABS: HEMATOCRIT 29.2 % (37.0-47.0); MEAN CORPUSCULAR HEMOGLOBIN 30 pg (27.0-31.0)
[2018-10-31 06:59] LABS: ALBUMIN 2.2 gm/dL (3.5-5.0); CALCIUM 8.2 mg/dL (8.4-10.2); CREATININE, serum 2.27 mg/dL (0.52-1.25); PHOSPHOROUS 2.6 mg/dL (2.5-4.5)
[2018-10-31 07:29] VITALS: BP 113/50; PULSE 106; TEMP 97.9
[2018-10-31 12:00] VITALS: BP 111/46; PULSE 95; TEMP 97.9
[2018-10-31 12:20] VITALS: BP 111/46; PULSE 95; TEMP 97.9
[2018-10-31] MEDS ORDERED: FERROUS SU325 MG/TAB PO (12:27)
[2018-10-31] MEDS ORDERED: ANTIVERT 12.512.5 MG PO (12:28)
[2018-10-31] MEDS ORDERED: ANUSOL-HC SUPPO25 MG RC (12:29)
== END 2018-10-31 13:43 | DRG 314 ==
LOC: COL.ER 18:19 → MEDICAL 19:49
PROVIDERS: Emergency Medicine; Hospitalist; Internal Medicine; Internal Medicine Nephrology
PROC: 5A1D70Z Performance of Urinary Filtration, Intermittent, Less than 6 Hours Per Day (ICD-10-PCS; principal; 2018-10-25)
PROC: 5A1D70Z Performance of Urinary Filtration, Intermittent, Less than 6 Hours Per Day (ICD-10-PCS; 2018-10-27)
PROC: 5A1D70Z Performance of Urinary Filtration, Intermittent, Less than 6 Hours Per Day (ICD-10-PCS; 2018-10-30)
DX: I95.89 Other hypotension (principal); N18.6 End stage renal disease; Z68.42 Body mass index [BMI] 45.0-49.9, adult; Z66 Do not resuscitate; N28.89 Other specified disorders of kidney and ureter; E66.01 Morbid (severe) obesity due to excess calories; I48.91 Unspecified atrial fibrillation; D63.1 Anemia in chronic kidney disease; F41.8 Other specified anxiety disorders; Z85.3 Personal history of malignant neoplasm of breast; Z87.891 Personal history of nicotine dependence; Z99.2 Dependence on renal dialysis; E83.39 Other disorders of phosphorus metabolism; E88.09 Other disorders of plasma-protein metabolism, not elsewhere classified
CPT/HCPCS: A9502; J0882; J2405; J2785; J7040; J7050; P9016; Q9967

== ENCOUNTER 2018-11-04 11:36 | Inpatient (IN) | payer MEDICARE, MEDICAID ==
[2018-11-04] VITALS (127 sets, daily range): BP systolic 57–118; BP diastolic 42–83; PULSE 104–128; TEMP 98–98.5; O2SAT 57–100
[~2018-11-04] VITALS: Ht 154.9 cm; Wt 104.6 kg
[~2018-11-04 11:36] MED LIST changes: +ARANESP0.06 MG/ML SQ; +BACTROBAN NASA0.9 GM NAS; +BIOTENE DRY M1000 ML PO; +BUSPAR5 MG PO; +DICLOZOR1 EACH TOP; +FERRO-TIME325 MG PO; +GLUCAGEN HYPOKIT1 MG IM; +GLUTOSE 1540% PO; +IPRATROPIUM BROM3 M1 IH; +LEXAPRO 10MG10 MG PO; +MARINOL 2.5MG2.5 MG PO; +NEPHRO-VITE PO; +NYSTATIN POWDER15 GM TOP
[2018-11-04 12:32] LABS: BASO # 0.1 (0.0-0.2); BASO % 0.8 % (0.0-2.0); EOS # 0.1 (0.0-0.7); EOS % 0.4 % (0-4.0); GRAN # 9.9 (1.4-6.5); LYMPH # 1.8 (1.2-3.4); LYMPH % 14.3 % (20.0-51.0); MEAN CELL VOLUME 99 fl (80.0-100.0); MEAN CORPUSCULAR HGB CONC 31 g/dl (33.0-37.0); MONO # 0.7 (0.1-0.6); MONO % 5.2 % (1.7-9.3); PLATELET COUNT 301 K/mm3 (130-400); RED BLOOD COUNT 2.52 M/mm3 (4.10-5.30); REDCELL DISTRIBUTION WIDTH-CV 17.3 % (11.5-14.5)
[2018-11-04 12:33] LABS: HEMATOCRIT 24.9 % (37.0-47.0); HEMOGLOBIN 7.7 g/dl (12.5-16.0); MEAN CORPUSCULAR HEMOGLOBIN 31 pg (27.0-31.0)
[2018-11-04 12:42] LABS: PARTIAL THROMBOPLASTIN TIME 25.4 SECONDS (26.0-37.0)
[2018-11-04 12:44] LABS: BILIRUBIN,TOTAL 0.3 mg/dL (0.0-1.0); CALCIUM 8.2 mg/dL (8.4-10.2); CREATININE, serum 1.65 mg/dL (0.52-1.25); TOTAL PROTEIN 4.8 gm/dL (6.4-8.2)
[2018-11-04 12:53] LABS: INR 1.2 (0.8-3.0); PROTHROMBIN TIME 13.3 SECONDS (9.7-12.8)
[2018-11-04] MEDS ORDERED: TYLENOL 325MG325 MG PO (16:34)
[2018-11-04] MEDS ORDERED: VTAMINC250TA PO (16:35)
[2018-11-04] MEDS ORDERED: ASPIRIN E.C. 8181 MG PO (16:37)
[2018-11-04] MEDS ORDERED: CVS GLUCOSE PO (16:38)
[2018-11-04] MEDS ORDERED: VOLTAREN GEL 1%1 TU TOP (16:39)
[2018-11-04] MEDS ORDERED: LEXAPRO 10MG10 MG PO (16:41)
[2018-11-04] MEDS ORDERED: FERROUS SU325 MG/TAB PO (16:42)
[2018-11-04] MEDS ORDERED: GLUCAGEN HYPOKIT1 MG IJ (16:43)
[2018-11-04] MEDS ORDERED: ANUSOL-HC SUPPO25 MG RC (16:44)
[2018-11-04] MEDS ORDERED: ATROVENT I0.2 MG/1 M IH (16:45)
[2018-11-04] MEDS ORDERED: LEVOXYL0.125 MG PO (16:46)
[2018-11-04] MEDS ORDERED: BIOTENE DRY M1000 ML (16:47)
[2018-11-04] MEDS ORDERED: ANTIVERT 12.512.5 MG PO (16:47)
[2018-11-04] MEDS ORDERED: NEPHROCAP PO (16:49)
[2018-11-04] MEDS ORDERED: ZOFRAN 4MG T4 MG/TAB PO (16:50)
[2018-11-04] MEDS ORDERED: BUSPAR5 MG PO (16:51)
[2018-11-04] MEDS ORDERED: NYAMYC100000 U/G TP (16:51)
[2018-11-04 21:57] LABS: HEMATOCRIT 27.2 % (37.0-47.0); HEMOGLOBIN 8.4 g/dl (12.5-16.0)
[2018-11-05] VITALS (970 sets, daily range): BP systolic 68–128; BP diastolic 24–65; PULSE 92–123; TEMP 97.6–98.4; O2SAT 47–100
[2018-11-05 05:42] LABS: MEAN CORPUSCULAR HGB CONC 32 g/dl (33.0-37.0); MEAN PLATELET VOLUME 9.9 fl (7.4-10.4); PLATELET COUNT 203 K/mm3 (130-400); RED BLOOD COUNT 2.69 M/mm3 (4.10-5.30); REDCELL DISTRIBUTION WIDTH-CV 18.2 % (11.5-14.5)
[2018-11-05 05:43] LABS: HEMATOCRIT 25.2 % (37.0-47.0); HEMOGLOBIN 8.1 g/dl (12.5-16.0); MEAN CELL VOLUME 94 fl (80.0-100.0); MEAN CORPUSCULAR HEMOGLOBIN 30 pg (27.0-31.0)
[2018-11-05 05:58] LABS: ALBUMIN 2.1 gm/dL (3.5-5.0); CALCIUM 8.2 mg/dL (8.4-10.2); CREATININE, serum 2.21 mg/dL (0.52-1.25); PHOSPHOROUS 2.4 mg/dL (2.5-4.5); POTASSIUM 4.7 mmol/L (3.4-5.0)
[2018-11-05 06:59] LABS: BAND 8 % (0-10); LYMPHOCYTE 6 % (20.0-51.0); NEUTROPHILS 85 % (42.0-75.2); PLATELET ESTIMATE NORMAL (NORMAL)
[2018-11-05 07:00] LABS: HYPOCHROMIA 1+; POLYCHROMASIA 1+
[2018-11-05 07:01] LABS: ANISOCYTOSIS 1+
[2018-11-05 15:47] LABS: HEMATOCRIT 24.1 % (37.0-47.0)
[2018-11-06] VITALS (659 sets, daily range): BP systolic 75–100; BP diastolic 21–52; PULSE 90–101; TEMP 97.7–98.6; O2SAT 71–100
[2018-11-06 05:38] LABS: MEAN CELL VOLUME 96 fl (80.0-100.0); MEAN CORPUSCULAR HGB CONC 32 g/dl (33.0-37.0); MEAN PLATELET VOLUME 9.8 fl (7.4-10.4); PLATELET COUNT 192 K/mm3 (130-400); RED BLOOD COUNT 2.29 M/mm3 (4.10-5.30); REDCELL DISTRIBUTION WIDTH-CV 19.1 % (11.5-14.5)
[2018-11-06 05:45] LABS: MEAN CORPUSCULAR HEMOGLOBIN 31 pg (27.0-31.0)
[2018-11-06 05:51] LABS: ALBUMIN 1.8 gm/dL (3.5-5.0); CALCIUM 8.3 mg/dL (8.4-10.2); CREATININE, serum 3.1 mg/dL (0.52-1.25); PHOSPHOROUS 2.2 mg/dL (2.5-4.5); POTASSIUM 4.3 mmol/L (3.4-5.0)
[2018-11-06 06:41] LABS: BAND 1 % (0-10); LYMPHOCYTE 18 % (20.0-51.0); METAMYELOCYTE 2 % (0-0); NEUTROPHILS 75 % (42.0-75.2)
[2018-11-06 06:42] LABS: ANISOCYTOSIS 2+; PLATELET ESTIMATE NORMAL (NORMAL)
[2018-11-07] VITALS (919 sets, daily range): BP systolic 80–100; BP diastolic 33–51; PULSE 84–92; TEMP 97.5–98.6; O2SAT 74–100
[2018-11-07 05:50] LABS: MEAN CELL VOLUME 94 fl (80.0-100.0); MEAN CORPUSCULAR HGB CONC 32 g/dl (33.0-37.0); MEAN PLATELET VOLUME 9.8 fl (7.4-10.4); PLATELET COUNT 158 K/mm3 (130-400); RED BLOOD COUNT 3.21 M/mm3 (4.10-5.30); REDCELL DISTRIBUTION WIDTH-CV 18.2 % (11.5-14.5)
[2018-11-07 06:00] LABS: HEMOGLOBIN 9.7 g/dl (12.5-16.0); MEAN CORPUSCULAR HEMOGLOBIN 30 pg (27.0-31.0)
[2018-11-07 06:03] LABS: ALBUMIN 1.9 gm/dL (3.5-5.0); CALCIUM 8.1 mg/dL (8.4-10.2); CREATININE, serum 2.13 mg/dL (0.52-1.25); PHOSPHOROUS 1.6 mg/dL (2.5-4.5); POTASSIUM 3.9 mmol/L (3.4-5.0)
[2018-11-07 06:25] LABS: BASOPHIL 1 % (0-2); EOSINOPHIL 1 % (0-4); LYMPHOCYTE 17 % (20.0-51.0); NEUTROPHILS 79 % (42.0-75.2)
[2018-11-07 06:26] LABS: PLATELET ESTIMATE DECREASED (NORMAL); POLYCHROMASIA 2+
[2018-11-07 06:28] LABS: TARGET CELLS 1+
[2018-11-07 06:29] LABS: ANISOCYTOSIS 1+
[2018-11-08] VITALS (785 sets, daily range): BP systolic 85–100; BP diastolic 38–48; PULSE 82–103; TEMP 97.6–97.7; O2SAT 80–100
[2018-11-08 05:34] LABS: MEAN CELL VOLUME 96 fl (80.0-100.0); MEAN CORPUSCULAR HGB CONC 32 g/dl (33.0-37.0); MEAN PLATELET VOLUME 10.1 fl (7.4-10.4); PLATELET COUNT 163 K/mm3 (130-400); REDCELL DISTRIBUTION WIDTH-CV 19.3 % (11.5-14.5)
[2018-11-08 05:37] LABS: HEMATOCRIT 30.8 % (37.0-47.0); HEMOGLOBIN 9.8 g/dl (12.5-16.0); MEAN CORPUSCULAR HEMOGLOBIN 31 pg (27.0-31.0)
[2018-11-08 05:47] LABS: ALBUMIN 1.9 gm/dL (3.5-5.0); CALCIUM 8.1 mg/dL (8.4-10.2); CREATININE, serum 2.77 mg/dL (0.52-1.25); PHOSPHOROUS 1.9 mg/dL (2.5-4.5); POTASSIUM 3.5 mmol/L (3.4-5.0)
[2018-11-08 06:31] LABS: BAND 4 % (0-10); LYMPHOCYTE 13 % (20.0-51.0); NEUTROPHILS 78 % (42.0-75.2); PLATELET ESTIMATE NORMAL (NORMAL)
[2018-11-09] VITALS (708 sets, daily range): BP systolic 48–154; BP diastolic 21–73; PULSE 88–129; TEMP 97–97.7; O2SAT 50–100
[2018-11-09 01:23] LABS: HEMATOCRIT 26.8 % (37.0-47.0); HEMOGLOBIN 8.8 g/dl (12.5-16.0)
[2018-11-09 03:32] LABS: MEAN CELL VOLUME 96 fl (80.0-100.0); MEAN CORPUSCULAR HGB CONC 32 g/dl (33.0-37.0); PLATELET COUNT 142 K/mm3 (130-400); RED BLOOD COUNT 2.76 M/mm3 (4.10-5.30); REDCELL DISTRIBUTION WIDTH-CV 19.6 % (11.5-14.5)
[2018-11-09 03:33] LABS: HEMATOCRIT 26.5 % (37.0-47.0); HEMOGLOBIN 8.5 g/dl (12.5-16.0); MEAN CORPUSCULAR HEMOGLOBIN 31 pg (27.0-31.0)
[2018-11-09 03:42] LABS: CALCIUM 7.6 mg/dL (8.4-10.2); CREATININE, serum 2.04 mg/dL (0.52-1.25); POTASSIUM 4.1 mmol/L (3.4-5.0)
[2018-11-09 04:16] LABS: LYMPHOCYTE 17 % (20.0-51.0); NEUTROPHILS 77 % (42.0-75.2); NUCLEATED RED BLOOD CELL 1 (0-6)
[2018-11-09 04:17] LABS: POLYCHROMASIA 1+; TARGET CELLS 1+
[2018-11-09 04:18] LABS: ANISOCYTOSIS 1+; HYPOCHROMIA 1+
[2018-11-09 05:13] LABS: ALBUMIN 1.7 gm/dL (3.5-5.0); CALCIUM 7.7 mg/dL (8.4-10.2); CREATININE, serum 2.01 mg/dL (0.52-1.25)
[2018-11-09 07:41] LABS: HEMATOCRIT 25.3 % (37.0-47.0); HEMOGLOBIN 8.2 g/dl (12.5-16.0)
[2018-11-10] VITALS (46 sets, daily range): O2SAT 79–100
== END 2018-11-10 09:15 | disposition expired | DRG 377 ==
LOC: COL.ER 11:36 → ICU 13:48 → MEDICAL 11-08 20:12 → ICU 11-09 04:20
PROVIDERS: Emergency Medicine; Internal Medicine; Internal Medicine Nephrology; Internal Medicine Pulmonary Disease
PROC: 05HN33Z Insertion of Infusion Device into Left Internal Jugular Vein, Percutaneous Approach (ICD-10-PCS; 2018-11-04)
PROC: 0DB58ZX Excision of Esophagus, Via Natural or Artificial Opening Endoscopic, Diagnostic (ICD-10-PCS; 2018-11-05)
PROC: 5A1D70Z Performance of Urinary Filtration, Intermittent, Less than 6 Hours Per Day (ICD-10-PCS; principal; 2018-11-06)
DX: K25.4 Chronic or unspecified gastric ulcer with hemorrhage (principal); N18.6 End stage renal disease; Z68.42 Body mass index [BMI] 45.0-49.9, adult; C64.9 Malignant neoplasm of unspecified kidney, except renal pelvis; K61.1 Rectal abscess; I95.9 Hypotension, unspecified; K26.4 Chronic or unspecified duodenal ulcer with hemorrhage; E83.39 Other disorders of phosphorus metabolism; Z51.5 Encounter for palliative care; Z99.2 Dependence on renal dialysis; I48.2 Chronic atrial fibrillation; D50.0 Iron deficiency anemia secondary to blood loss (chronic); Z66 Do not resuscitate; E66.01 Morbid (severe) obesity due to excess calories; E03.9 Hypothyroidism, unspecified; Z87.891 Personal history of nicotine dependence; Z85.3 Personal history of malignant neoplasm of breast; Z88.1 Allergy status to other antibiotic agents; Z88.5 Allergy status to narcotic agent; Z88.8 Allergy status to other drugs, medicaments and biological substances
CPT/HCPCS: C9113; J1160; J2060; J2250; J2270; J2405; J2704; J3430; J7030; J7040; P9016; P9047